=== PATIENT | female | born 1995 | race Caucasian/White ===

== ENCOUNTER 2020-11-17 11:05 | Emergency (ER) | payer MEDICAID ==
[~2020-11-17] VITALS: Ht 175.3 cm; Wt 75.0 kg
[2020-11-17] MEDS ORDERED: BACITRACIN 0.9 GM PACKET OINTMENT TP ONE (12:45)
[2020-11-17] MEDS ORDERED: LIDOCAINE 1% 10 ML VIAL SQ ONE (12:45)
[2020-11-17] MEDS ORDERED: ACETAMINOPHEN/CODEINE 300-30 MG TABLET PO ONE (12:45)
[2020-11-17] MEDS ORDERED: IBUPROFEN 600 MG TABLET PO ONE (12:45)
[2020-11-17 13:49] VITALS: BP 122/80
== END 2020-11-17 13:50 | disposition home or self-care (01) ==
LOC: EMS 11:05
DX: S91.201A Unspecified open wound of right great toe with damage to nail, initial encounter (principal); W50.1XXA Accidental kick by another person, initial encounter; Y93.89 Activity, other specified; Y92.89 Other specified places as the place of occurrence of the external cause; Y99.8 Other external cause status
CPT/HCPCS: 11730; 99284; J3490